=== PATIENT | female | born 1930 | race Caucasian/White ===

== ENCOUNTER 2020-02-25 20:04 | Inpatient (IN) | payer MEDICARE, OTHER ==
[2020-02-25 20:51] LABS: Bilirubin Negative (Negative); Blood, Urine Negative (Negative); Clarity Clear (Clear); Glucose, Urine (Dipstick) Normal (Negative); Ketone, Urine Negative (Negative); Leukocyte Negative Leu/uL (Negative); Nitrite Negative (Negative); Protein, Urine (Dipstick) Negative (Neg-Trace); Specific Gravity, Urine 1.011 (1.002-1.036); Urobilinogen Normal mg/dL (Less than 2)
[2020-02-25 21:16] LABS: #Eosinphils 0.3 thou/uL (0.0-0.7); #Lymphocytes 2.4 thou/uL (1.20-3.40); #Monocytes 0.8 thou/uL (0.11-0.59); #Neutrophils 4.1 thou/uL (1.40-6.50); %Basophils 0.5 % (0.0-1.0); %Eosinophils 4.3 % (0.0-10.0); %Lymphocytes 31.3 % (21.0-51.0); %Monocytes 10.8 % (0.0-10.0); %Neutrophils 53.1 % (42.0-75.0); Hemoglobin 15.1 g/dL (12.0-16.0); Mean Corpuscular HGB CONC 32.5 g/dL (32.0-36.0); Mean Corpuscular Hemoglobin 30.7 pg (27.0-31.0); Mean Corpuscular Volume 94.6 fL (78.0-98.0); Mean Platelet Volume 7.6 fL (7.4-10.4); Platelet Count 229 thou/uL (130-400); RBC Distribution Width 13.2 % (11.5-14.5); Red Blood Cell (RBC) Count 4.92 mill/uL (4.20-5.40); White Blood Cell (WBC) Count 7.7 thou/uL (4.8-10.8)
[2020-02-25 21:28] LABS: ALT (SGPT) 21 U/L (8-55); AST (SGOT) 21 U/L (5-34); Albumin 4.1 g/dL (3.4-4.8); Alkaline Phosphatase 93 U/L (40-110); Anion Gap 16 mmol/L (10-20); BUN (Urea Nitrogen) 20 mg/dL (9.8-20.1); Bilirubin, Total 0.4 mg/dL (0.2-1.2); Calc. Creatinine Clearance 0 mL/min (70-130); Calcium 9.4 mg/dL (7.8-10.44); Carbon Dioxide 22 mmol/L (23-31); Chloride 103 mmol/L (98-107); Estimated GFR-MDRD 61; Globulin 2.9 g/dL (2.4-3.5); Glucose 101 mg/dL (83-110); Sodium 137 mmol/L (136-145)
[2020-02-25] MEDS ORDERED: Aspirin Chewable 81 MG TAB ONE (23:39)
[2020-02-26] MEDS ORDERED: Acetaminophen 650 MG Suppository PR PRN (00:37)
[2020-02-26] MEDS ORDERED: Acetaminophen 325 MG TAB PO PRN (00:37)
[2020-02-26 00:58] VITALS: BMI 31.4
--- NOTE | 2020-02-26 01:01 | PDOC.HHP ---
Hospitalist HPI - History of Present Illness Lightheaded and generally unwell History of Present Illness: Patient states she has been feeling generally unwell today since she woke up and began to feel gradually worse throughout the day. She took her blood pressure at home and noticed that it continues to increase. She self-treated with 2 additional pills of her Lisinopril (15 mg total) and also took her evening dose of Metoprolol as normal. She opted to seek medical attention at a local urgent care center. Recalls feeling lightheaded when she would stand. No pre- syncope/syncope. Denies any spinning sensation or unsteady gait. She states her BP got as high as 207 systolic. She felt lightheaded at that time. Denies experiencing any chest pain. She just walked to the bathroom and states she had no difficulty with her gait. From urgent care facility she was referred to the ED. States she was previously under the care of Dr. Garza for a hx of SVT. Her used to take her to the hospital and after he she discussed with Dr. Garza concern for not having the support to get to the ED. She was therefore referred for ablation which she had done in [place]. She continued to follow-up with Dr. Garza and was eventually cleared. ROS: Patient states she has been well in recent days. Denies any fevers or chills. Has been eating/drinking well. Denies any cough or hemoptysis. No chest pain. States her BP is usually well-controlled. No extremity numbness or weakness. No vision changes or slurred speech. No n/v. She has not noted any changes with her stools or urinary symptoms. Denies any abdominal pain. All other review of systems negative. ED COURSE: 12 lead EKG interpreted by Emergency Department Physician at time of study, Normal sinus rhythm left atrial enlargement slight ST depression in V5 and V6 with T wave inversions in III and aVF overall impression nonspecific. FBC/CMP unremarkable. Trop 0.030. CKMB 2.0. Urinalysis normal. Without intervention, patients BP dropped from 205 systolic to 176 systolic. Shes being admitted for ACS rule out due to EKG findings and indeterminate troponin. She remains chest pain free and denies ever experiencing chest pain. Given 325 mg of aspirin in the ED. PAST MEDICAL HISTORY: 1. History of SVT treated with ablation years ago. 2. History of breast cancer. 3. Macular degeneration. 4. Hypertension. 5. Hypothyroidism. PAST SURGICAL HISTORY: 1. Cardiac ablation for recurrent SVT. 2. Bilateral knee surgery. 3. Bilateral eye surgery. 4. Appendectomy. 5. Hysterectomy. 6. Right breast mastectomy. 7. Oopherectomy. SOCIAL HISTORY: She lives alone. Denies any tobacco use, alcohol consumption or drug use. She walks and functions independently. FAMILY HISTORY: Both of her parents were diagnosed with hypertension. ALLERGIES: 1. Meperidine. 2. Sulfa. CURRENT MEDICATIONS: 1. Levothyroxine 13 mcg PO daily. 2. Metoprolol succinate 50 mg PO daily. 3. Lisinopril/HCTZ 10/12.5 mg PO daily. - Exam General Appearance: NAD, awake alert General - other findings: BP: 158/84, HR: 87, RR: 14, Pain: 0, O2 sat: 96 on RA, Temp: 98.7 Eye: PERRL, anicteric sclera ENT: normocephalic atraumatic, no oropharyngeal lesions Neck: supple, symmetric, no lymphadenopathy Heart: RRR, no murmur, no gallops, normal peripheral pulses Respiratory: CTAB, no wheezes, no rales, no ronchi, normal chest expansion Gastrointestinal: soft, non-tender, non-distended, normal bowel sounds, no guarding, no rigidity Extremities: no edema Skin: normal turgor, no lesions Neurological: cranial nerve grossly intact, normal sensation to touch Musculoskeletal: normal tone, normal strength, no muscle wasting Psychiatric: normal affect, normal behavior, A&O x 3 Hospitalist Results - Labs Result Diagrams: 02/25/20 20:59 02/25/20 20:59 Lab results: WBC 7.7 thou/uL (4.8-10.8) 02/25/20 20:59 Hgb 15.1 g/dL (12.0-16.0) 02/25/20 20:59 Hct 46.6 % (36.0-47.0) 02/25/20 20:59 MCV 94.6 fL (78.0-98.0) 02/25/20 20:59 Plt Count 229 thou/uL (130-400) 02/25/20 20:59 Neutrophils % 53.1 % (42.0-75.0) 02/25/20 20:59 Sodium 137 mmol/L (136-145) 02/25/20 20:59 Potassium 4.0 mmol/L (3.5-5.1) 02/25/20 20:59 Chloride 103 mmol/L (98-107) 02/25/20 20:59 Carbon Dioxide 22 mmol/L (23-31) L 02/25/20 20:59 BUN 20 mg/dL (9.8-20.1) 02/25/20 20:59 Creatinine 0.87 mg/dL (0.6-1.1) 02/25/20 20:59 Glucose 101 mg/dL (83-110) 02/25/20 20:59 Calcium 9.4 mg/dL (7.8-10.44) 02/25/20 20:59 Total Bilirubin 0.4 mg/dL (0.2-1.2) 02/25/20 20:59 AST 21 U/L (5-34) 02/25/20 20:59 ALT 21 U/L (8-55) 02/25/20 20:59 Alkaline Phosphatase 93 U/L (40-110) 02/25/20 20:59 CK-MB (CK-2) 2.0 ng/mL (0-6.6) 02/25/20 21:39 Troponin I 0.030 ng/mL (< 0.028) H 02/25/20 21:39 Serum Total Protein 7.0 g/dL (6.0-8.3) 02/25/20 20:59 Albumin 4.1 g/dL (3.4-4.8) 02/25/20 20:59 Urine Ketones Negative mg/dL (Negative) 02/25/20 20:24 Urine Blood Negative (Negative) 02/25/20 20:24 Urine Nitrite Negative (Negative) 02/25/20 20:24 Ur Leukocyte Esterase Negative Aubrie/uL (Negative) 02/25/20 20:24 Hospitalist H&P A/P - Problem (1) Hypertensive urgency Code(s): I16.0 - HYPERTENSIVE URGENCY Status: Resolved Assessment and Plan: Continue to monitor BP. Has normalized for now. Will use hydralazine as PRN option. Advised patient not to self-medicate in the future with her medications for uncontrolled BP. Will monitor electrolytes. She received 37.5 mg of HCTZ total today. (2) Lightheaded Code(s): R42 - DIZZINESS AND GIDDINESS Status: Resolved Assessment and Plan: Orthostatic BPs. Gentle hydration. (3) Malaise Code(s): R53.81 - OTHER MALAISE Status: Resolved Assessment and Plan: No underlying UTI. No other signs or symptoms of infection. Will obtain baseline CXR. Gentle hydration. (4) Elevated troponin I level Code(s): R79.89 - OTHER SPECIFIED ABNORMAL FINDINGS OF BLOOD CHEMISTRY Status: Acute Assessment and Plan: Indeterminate troponin. Will continue to trend. Cardiology consult placed with Dr. Garza per patient request. Continue statin and aspirin. Continue cardiac monitoring. Check lipid panel with AM labs. (5) Hypertension Code(s): I10 - ESSENTIAL (PRIMARY) HYPERTENSION Status: Chronic Assessment and Plan: Reconcile home meds and monitor BP. (6) Hx of supraventricular tachycardia Code(s): Z86.79 - PERSONAL HISTORY OF OTHER DISEASES OF THE CIRCULATORY SYSTEM Status: Chronic (7) Hypothyroidism Code(s): E03.9 - HYPOTHYROIDISM, UNSPECIFIED Status: Chronic Assessment and Plan: Reconcile home medications once verified. Check TSH with morning labs. - Plan Plan: DVT prophylaxis: Walking program consulted. Patient is ambulatory. RG is her son Mau Franklin. Case discussed with attending who agrees with plan as above.
[2020-02-26] MEDS: Sodium Chloride 0.9% 1,000 ML IV SCH ×2 (01:09→17:06)
[2020-02-26 05:03] LABS: Anion Gap 15 mmol/L (10-20); BUN (Urea Nitrogen) 17 mg/dL (9.8-20.1); Calc. Creatinine Clearance 64 mL/min (70-130); Calcium 8.9 mg/dL (7.8-10.44); Carbon Dioxide 22 mmol/L (23-31); Chloride 106 mmol/L (98-107); Cholesterol 229 mg/dl (< 200 Desired); Estimated GFR-MDRD 69; Glucose 103 mg/dL (83-110); HDL Cholesterol 46 mg/dL (>60 Neg Risk); LDL Cholesterol, Calculated 161 mg/dL; Potassium 3.8 mmol/L (3.5-5.1); Sodium 139 mmol/L (136-145); Triglycerides 108 mg/dL (Less than 150)
[2020-02-26 05:06] LABS: Troponin I 0.028 ng/mL (< 0.028)
[2020-02-26 06:18] LABS: #Basophils 0.1 thou/uL (0.0-0.2); #Eosinphils 0.3 thou/uL (0.0-0.7); #Monocytes 0.8 thou/uL (0.11-0.59); %Basophils 0.8 % (0.0-1.0); %Eosinophils 4.4 % (0.0-10.0); %Lymphocytes 33.2 % (21.0-51.0); %Monocytes 12.5 % (0.0-10.0); %Neutrophils 49.1 % (42.0-75.0); Mean Corpuscular HGB CONC 32.1 g/dL (32.0-36.0); Mean Corpuscular Hemoglobin 30.6 pg (27.0-31.0); Mean Corpuscular Volume 95.6 fL (78.0-98.0); Mean Platelet Volume 7.6 fL (7.4-10.4); Platelet Count 243 thou/uL (130-400); RBC Distribution Width 13.2 % (11.5-14.5); Red Blood Cell (RBC) Count 4.57 mill/uL (4.20-5.40); White Blood Cell (WBC) Count 6.2 thou/uL (4.8-10.8)
[2020-02-26] MEDS ORDERED: cloNIDine 0.1 MG TAB PO PRN (08:23)
--- NOTE | 2020-02-26 08:55 | RAD ---
XR Chest Pa Lat STANDARD HISTORY: Baseline chest radiograph COMPARISON: None FINDINGS: The heart size is normal. The aorta is tortuous. The lungs are well expanded without focal areas of consolidation, pneumothorax or pleural effusions. IMPRESSION: No radiographic evidence of acute cardiopulmonary process.
--- NOTE | 2020-02-26 10:28 | CON ---
DATE OF CONSULTATION: PRIMARY CARE DOCTOR: Dr. Reis. PRIMARY CAFE OR RESTAURANT MANAGER: Dr. Aimee Garza. REFERRING PROVIDER: Ms. Hickey. REASON FOR CARDIOLOGY CONSULT: Hypertensive urgency, indeterminate troponin level. HISTORY OF PRESENT ILLNESS: Ms. Franklin is a very pleasant 89-year-old female with a significant history of SVT with ablation in 2000, hypertension, hyperlipidemia, and glaucoma, and mitral valve regurgitation. The patient was relatively doing well until last Wednesday, she noticed her blood pressure was up to 160s systolic. The patient's primary care doctor adjusted her medication and the patient's blood pressure went down to 130s over 60s to 70s on the next day, Wednesday, and the patient followed up with Dr. Reis's office on Wednesday. The patient had a normal EKG according to the patient. The patient's blood pressure was stable until Wednesday, she noticed her blood pressure was going up to more than 160 on the systolic side, and yesterday, she started having mild dizziness and her blood pressure was more than 180. The patient went to the emergency care place. The patient was transferred to [facility] for blood pressure of 199/101. The patient denied headache, blurry vision, chest pain, heaviness, tightness, or any other cardiac complaints except mild dizziness when the patient's blood pressure is more than 160. She has not followed up with Dr. Garza' office since 2014. She has not seen any oracle sql developer since then. MEDICAL HISTORY: Macular degeneration, SVT with ablation in 2000, hypertension, hyperlipidemia, glaucoma. SURGICAL HISTORY: SVT ablation in 2000, glaucoma pressure relief in both eyes, total hysterectomy, bilateral knee replacement, right breast mastectomy, and appendectomy. FAMILY HISTORY: The patient's father has myocardial infarction. The patient's mother has history of hypertension. SOCIAL HISTORY: She is a . She denied EtOH, tobacco, or illicit drug abuse. 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 Before COVID-19 pandemic, she used to exercise the water exercise and walking on the treadmill without any cardiac complaints. Last exercise was last Wednesday. She had a water exercise and she walked with friends without cardiac complaints or dizziness or lightheadedness. ALLERGIES: SHE IS ALLERGIC TO MEPERIDINE AND SULFA. HOME MEDICATIONS: 1. Niacin 1000 mg every morning. 2. Vitamin D3, 1000 units twice a day. 3. Calcium carbonate 600 mg once a day. 4. Multivitamin once a day. 5. Cranberry extract 500 mg once a day. 6. Zolpidem 5 mg at night as needed. 7. Timolol one drop left eye every morning. 8. Metoprolol succinate 50 mg once a day. 9. Lisinopril 5 mg at night. 10. Levothyroxine 50 mcg once a day. 11. AREDS one capsule twice a day. 12. Latanoprost one drop left eye every night. 13. Aspirin 81 mg at night. REVIEW OF SYSTEMS: A 12-point review of systems negative unless otherwise mentioned in HPI. The patient's last fall was one month ago when she was taking care of her yard, she was tripped on some holes. Otherwise, the patient does not have any balance issues. She uses 2 poles for walking when she does the exercise. LABORATORY DATA: WBC 6.2, hemoglobin 14.0, hematocrit 43.7, platelets 243. Sodium 139, potassium 3.8, BUN 17, creatinine 0.79, glucose 103, calcium 8.9, magnesium 1.9, AST 21, ALT 21. CK-MB is 2.0. Troponin is 0.03, 0.03, and 0.028. BNP is 98. Total cholesterol 229, triglyceride 108, HDL 46, LDL 161. TSH 3.0344. UA is negative. ASSESSMENT AND PLAN: 1. Hypertensive urgency. The patient's orthostatic blood pressure is stable at this moment. We are going to resume her blood pressure medication and will start clonidine 0.1 mg every 8 hours p.r.n. for systolic blood pressure more than 180. We would like to monitor her blood pressure during the hospital course. The patient used to take the metoprolol succinate 50 mg at night; however, we would like to change it to twice a day to more better blood pressure control. Also, lisinopril is 5 mg at night; however, due to the hypertensive urgency, we would like to change that frequency from once a day to twice a day. The patient's creatinine level is under well controlled. The patient's heart rate is stable at this moment. 2. Indeterminate troponin level, seems like that is secondary to demand ischemia secondary to hypertensive urgency. The patient's troponin level went down to normal at the third drawing. The patient does not have any cardiac complaints. She could exercise last Wednesday without any cardiac complaints. Also, due to her age, she is not a candidate for cardiac cath anyway at this moment unless the patient has any symptoms or EKG change. The patient's EKG has not shown any ST-segment changes or T-wave inversion. 3. History of mitral valve regurgitation. The echocardiogram was ordered today. However, if the patient's condition is stable, the patient can have echocardiogram as outpatient at Dr. Garza' office. 4. History of supraventricular tachycardia ablation in 2000. The patient has been on the telemetry, has not shown any arrhythmia or pauses during this hospital course. 5. Hyperlipidemia. The patient's total cholesterol is 229 and LDL 161. She is on niacin, however, low dose of statin might be beneficial for this patient for hyperlipidemia. Thank you very much for Cardiology Service consult request to participate in the care of this patient. We will follow along the patient's care team and make further recommendations as appropriate. Job ID: [id number] MTDD
[2020-02-26] MEDS: Aspirin 81 mg Enteric Coated Tablet PO SCH (10:29)
[2020-02-26] MEDS: Metoprolol Tartrate 25 MG TAB PO SCH ×2 (10:29→23:30)
[2020-02-26] MEDS ORDERED: Zolpidem Tartrate 5 MG TAB PO PRN (11:41)
--- NOTE | 2020-02-26 12:18 | CON ---
DATE OF CONSULTATION: 02/26/2020 INDICATIONS FOR CONSULTATION: An 89-year-old female with a history of hypertension. In the last few days, the blood pressure has been somewhat poorly controlled. She said it was improving quite well, not her normal self. She presented to the hospital and blood pressure was significantly elevated and she was admitted and also was noted to have elevated cardiac enzymes, which were indeterminate, but did not appear to be significant enough to even call it a [id number] elevation myocardial infarction or type 2 myocardial infarction. She is a very pleasant lady, I have taken care of her for many years. She has had some history of SVT in the past. She underwent an ablation and since that time has been doing quite well. She has not been seen in the office for a couple of years and otherwise has been doing very well from a cardiac standpoint until she knows her blood pressure was being elevated over the last several days. She was relatively asymptomatic, but said that she just did not quite feel right in her head that she was feeling a little bit fuzzy, but otherwise she denied any chest pain or shortness of breath and presented to the emergency room after her blood pressure was elevated on several episodes up to close to 200 or 207 systolically and then she has had new blood pressure cuff and she was monitoring her blood pressure, but otherwise she did not have any significant changes otherwise. She was admitted to the hospital and it was noted that the cardiac enzymes were indeterminate, but did slightly increase, but still would be considered negative for myocardial infarction. PAST MEDICAL HISTORY: Significant for the SVT and underwent ablation several years ago. She has a history of macular degeneration. She gets shots once a month. She has history of hypertension, hypothyroidism. She also has a history of breast cancer in the past. SURGICAL HISTORY: She has had the SVT ablation. She has had surgery on her eyes bilaterally. She has had bilateral knee surgery, hysterectomy, appendectomy, mastectomy on the right side. She has had oophorectomy. SOCIAL HISTORY: She is a . She lives alone. She has no history of alcohol or tobacco abuse. 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 ALLERGIES: SHE IS ALLERGIC TO SULFA AND MEPERIDINE. FAMILY HISTORY: Noncontributory at this time, but family history is positive for hypertension. MEDICATIONS: Prior to admission included; 1. Lisinopril/hydrochlorothiazide 10/12.5 daily. 2. Metoprolol 50 mg a day. 3. Levothyroxine 13 mcg daily. PHYSICAL EXAMINATION: GENERAL: Reveals a well-developed, well-nourished female, who is in no acute distress at this time. She is very pleasant. She is alert and oriented. VITAL SIGNS: Blood pressure is 172/72, heart rate is in the 70s and shows a sinus rhythm. She is afebrile. Respiratory rate is 16, O2 saturations 93%. HEENT: Shows head to be normocephalic and atraumatic. Carotid pulses are present. There were no bruits. CHEST: Clear to auscultation without rales, rhonchi, or wheezing. CARDIOVASCULAR: Reveals a regular rate and rhythm with normal S1 and S2, but I cannot hear an S3 nor an S4. There were no significant murmurs, heaves, thrills, bruits, or rubs noted. ABDOMEN: Soft and nontender. Positive bowel sounds are present. EXTREMITIES: Showed no clubbing, cyanosis, or edema. Pedal pulses are present. NEUROLOGIC: She appears to be fully intact. She has normal strength, normal tone. SKIN: Warm and dry. There were no other significant abnormalities noted. DIAGNOSTIC STUDIES: Her EKG shows a sinus rhythm without any acute changes. No indication of previous myocardial infarction. No evidence of ischemia. LABORATORY DATA: Shows a hemoglobin of 14, platelet count was 243,000, WBC of 6.2. Sodium was 139, potassium was 3.8, BUN was 17, creatinine 0.79, blood sugar was 103. Troponin I is negative. Cholesterol was 229 with LDL 161 which is significantly elevated, HDL was 46. Please note that she was not taking any medications at home for cholesterol and this will need to be addressed, whether or not this is a fasting lipid profile, I am uncertain. IMPRESSION: 1. Hypertension. She will need to resume her home medications. Since being admitted to the hospital, she has not been given her medications. I requested this morning that be addressed by the primary care service and they reinstate her medications. We may need to add another medication such as amlodipine or some other medication to lower the blood pressure. I did not hear any abdominal bruits that would indicate renal artery stenosis. 2. Hyperlipidemia. We will see if she will tolerate statins. I do not see that she is allergic to these medications and then can repeat the cholesterol level in 3 months. This is going to be followed by the primary care physician, Dr. Danis Reis. She was taking niacin for her cholesterol. 3. Hypothyroidism. She will be continued on her present medications. 4. She also has macular degeneration. She gets a weekly injection. She also takes ophthalmic drops. This will be continued for the time being. The main concern is to continue to monitor the blood pressure. We will also check an echocardiogram. We will be more than happy to continue to follow the patient with you. Further recommendations will depend on whether or not the blood pressure becomes under better control and also the results of the echocardiogram. She denies any chest pain or shortness of breath. Job ID: [id number]
[2020-02-26] MEDS ORDERED: Levothyroxine Sodium 50 MCG TAB PO SCH (12:45)
[2020-02-26] MEDS: Lisinopril 5 MG TAB PO SCH ×2 (12:45→23:30)
[2020-02-26] MEDS ORDERED: Timolol 0.5% Ophth Soln 5 ml Bottle L EYE SCH (12:45)
[2020-02-26 13:29] LABS: SARS-CoV-2 MS2 Positive; SARS-CoV-2 N Gene Negative; SARS-CoV-2 S Gene Negative; SARS-CoV-2 by NAA Not Detected (NotDetected); SARS-CoV-2 orf1ab Negative
--- NOTE | 2020-02-26 13:40 | PDOC.HOSPP ---
- Subjective Encounter Date: 02/26/20 Encounter Time: 12:00 Subjective: Patient seen and examined. No new complaints. Reports feeling much better. Denies any chest pain, SOB or light headedness. No overnight events - Objective Vital Signs & Weight: Vital Signs (12 hours) Temp Pulse Resp BP BP BP BP 02/26/20 12:45 70 02/26/20 12:25 98.5 F 70 18 116/57 L 100/58 L 137/60 02/26/20 10:52 02/26/20 08:16 97.9 F 71 16 172/72 H 149/71 H 178/77 H 02/26/20 04:20 98.1 F 79 18 172/77 H Pulse Ox 02/26/20 12:45 02/26/20 12:25 96 02/26/20 10:52 93 L 02/26/20 08:16 93 L 02/26/20 04:20 96 Weight Weight 182 lb 12.8 oz I&O: 02/25/20 02/26/20 02/27/20 06:59 06:59 06:59 Output Total 475 Balance -475 Result Diagrams: 02/26/20 05:45 02/26/20 04:30 EKG Reviewed by me: Yes Hospitalist ROS - Review of Systems Constitutional: denies: fever, chills Cardiovascular: denies: chest pain, palpitations, edema, light headedness Gastrointestinal: denies: nausea, vomiting, abdominal pain Neurological: reports: weakness. denies: numbness, incoordination, change in speech All other systems reviewed; all pertinent +/- noted in HPI/Subj - Medication Medications: Active Medications Generic Name Dose Route Start Last Admin Trade Name Freq PRN Reason Stop Dose Admin Aspirin 81 mg 02/26/20 09:00 02/26/20 10:29 Aspirin 81 Mg Enteric Coated Tablet PO 81 mg DAILY BRISSA Administration Sodium Chloride 1,000 mls @ 50 mls/hr 02/26/20 00:45 02/26/20 01:09 Normal Saline 0.9% IV 1,000 mls .Q20H BRISSA Administration Lisinopril 5 mg 02/26/20 09:00 02/26/20 12:45 Lisinopril 5 Mg Tab PO 5 mg BID BRISSA Administration Metoprolol Tartrate 25 mg 02/26/20 09:00 02/26/20 10:29 Metoprolol Tartrate 25 Mg Tab PO 25 mg BID BRISSA Administration - Exam General Appearance: NAD, awake alert Eye: anicteric sclera ENT: normocephalic atraumatic Neck: supple, symmetric, no JVD Heart: RRR, no murmur, no gallops, no rubs, normal peripheral pulses Respiratory: CTAB, no wheezes, no rales, no ronchi, normal chest expansion, no tachypnea Gastrointestinal: soft, non-tender, normal bowel sounds, no bruit, no guarding, no rigidity Extremities: no cyanosis, no edema Skin: no rashes Neurological: normal sensation to touch, no weakness, no focal deficits Musculoskeletal: normal tone, normal strength Psychiatric: normal affect, A&O x 3 Hosp A/P (1) Lightheaded Code(s): R42 - DIZZINESS AND GIDDINESS Status: Resolved (2) Hypertensive urgency Code(s): I16.0 - HYPERTENSIVE URGENCY Status: Resolved (3) Elevated troponin I level Code(s): R79.89 - OTHER SPECIFIED ABNORMAL FINDINGS OF BLOOD CHEMISTRY Status: Acute (4) Hypertension Code(s): I10 - ESSENTIAL (PRIMARY) HYPERTENSION Status: Chronic (5) Hypothyroidism Code(s): E03.9 - HYPOTHYROIDISM, UNSPECIFIED Status: Chronic (6) Hx of supraventricular tachycardia Code(s): Z86.79 - PERSONAL HISTORY OF OTHER DISEASES OF THE CIRCULATORY SYSTEM Status: Chronic (7) Glaucoma Code(s): H40.9 - UNSPECIFIED GLAUCOMA Status: Chronic - Plan DVT proph w/SCDs 89/F with PMH of hypertension and hypothyroidism presents for feeling ligh theaded. Reported checking her blood pressure frequently at home. Average SBP 150-130. Reports decreased water intake. Reports symptoms appear with standing. #Lightheaded Currently resolved. Orthostatic positive. Continue IV fluids. Awaiting echocardiogram results. #Hypertensive urgency Appreciate cardiology recs. Metoprolol 25 mg p.o. twice daily Lisinopril 5 mg p.o. twice daily #Elevated troponin level Likely demand ischemia 0.030, 0.030, 0.028, flat EKG normal sinus rhythm no ST elevations. Continue aspirin #Hypothyroidism TSH 3.03, unremarkable Continue home dose of levothyroxine. #History of supraventricular tachycardia Followed by Dr. Garza. EKG normal sinus rhythm. Continue beta-lona #Glaucoma Restart patient's home medications.
[2020-02-26] MEDS: Cholecalciferol 1,000 UNITS (25 MCG) TAB PO SCH (20:47)
[2020-02-26] MEDS ORDERED: Latanoprost 0.005% Ophth Soln 2.5 ml Bottle L EYE SCH (21:00)
[2020-02-27] MEDS ORDERED: Levothyroxine Sodium 50 MCG TAB PO SCH (06:00)
[2020-02-27] MEDS: Lisinopril 5 MG TAB PO SCH (08:58)
[2020-02-27] MEDS: Aspirin 81 mg Enteric Coated Tablet PO SCH (08:59)
[2020-02-27] MEDS: Cholecalciferol 1,000 UNITS (25 MCG) TAB PO SCH (08:59)
[2020-02-27] MEDS: Metoprolol Tartrate 25 MG TAB PO SCH (08:59)
[2020-02-27] MEDS ORDERED: Timolol 0.5% Ophth Soln 5 ml Bottle L EYE SCH (09:00)
[2020-02-27] MEDS ORDERED: Multivitamin W/ Minerals 1 TAB PO SCH (09:00)
[2020-02-27] MEDS ORDERED: Calcium Carbonate 600 MG TAB PO SCH (09:00)
--- NOTE | 2020-02-27 09:50 | PDOC.HOSPP ---
- Subjective Encounter Date: 02/27/20 Encounter Time: 09:48 Subjective: Patient seen and examined. No new complaints. No overnight events. Reports feeling much better. Expresses desire for written plan when her blood pressure gets "too high". Denies any chest pain, SOB, light headedness. Has no other complaints. - Objective Vital Signs & Weight: Vital Signs (12 hours) Temp Pulse Resp BP BP BP Pulse Ox 02/27/20 08:28 87 118/59 L 119/57 L 134/63 02/27/20 08:27 98.2 F 72 16 94 L 02/27/20 04:57 98.2 F 77 14 116/61 95 02/27/20 00:10 98.0 F 71 14 134/63 95 02/26/20 23:30 77 02/26/20 22:33 77 14 119/60 Weight Weight 182 lb 12.8 oz I&O: 02/26/20 02/27/20 02/28/20 06:59 06:59 06:59 Intake Total 2140 Output Total 475 1350 Balance -475 790 Result Diagrams: 02/26/20 05:45 02/26/20 04:30 Hospitalist ROS - Review of Systems Constitutional: denies: fever, chills Respiratory: denies: cough, shortness of breath, hemoptysis Cardiovascular: denies: chest pain, palpitations, edema, light headedness Gastrointestinal: denies: nausea, vomiting, abdominal pain, diarrhea All other systems reviewed; all pertinent +/- noted in HPI/Subj - Medication Medications: Active Medications Generic Name Dose Route Start Last Admin Trade Name Sunilq PRN Reason Stop Dose Admin Aspirin 81 mg 02/26/20 09:00 02/27/20 08:59 Aspirin 81 Mg Enteric Coated Tablet PO 81 mg DAILY BRISSA Administration Calcium Carbonate 600 mg 02/27/20 09:00 02/27/20 08:59 Calcium Carbonate 600 Mg Tab PO 600 mg DAILY BRISSA Administration Cholecalciferol 1,000 units 02/26/20 21:00 02/27/20 08:59 Cholecalciferol 1,000 Units (25 Mcg) Tab PO 1,000 units BID BRISSA Administration Sodium Chloride 1,000 mls @ 50 mls/hr 02/26/20 00:45 02/26/20 17:06 Normal Saline 0.9% IV 1,000 mls .Q20H BRISSA Administration Iron/Minerals/Multivitamins 1 tab 02/27/20 09:00 02/27/20 08:58 Multivitamin W/ Minerals 1 Tab PO 1 tab DAILY BRISSA Administration Latanoprost 1 drop 02/26/20 21:00 02/26/20 20:47 Latanoprost 0.005% Ophth Soln 2.5 Ml Bottle L EYE 1 drp HS BRISSA Administration Levothyroxine Sodium 50 mcg 02/27/20 06:00 02/27/20 06:03 Levothyroxine Sodium 50 Mcg Tab PO 50 mcg 0600 BRISSA Administration Lisinopril 5 mg 02/26/20 09:00 02/27/20 08:58 Lisinopril 5 Mg Tab PO 5 mg BID BRISSA Administration Metoprolol Tartrate 25 mg 02/26/20 09:00 02/27/20 08:59 Metoprolol Tartrate 25 Mg Tab PO 25 mg BID BRISSA Administration Niacin 1,000 mg 02/27/20 09:00 02/27/20 08:59 Niacin Er 500 Mg Tab PO 1,000 mg QAM BRISSA Administration Timolol Maleate 1 drop 02/27/20 09:00 02/27/20 09:02 Timolol 0.5% Ophth Soln 5 Ml Bottle L EYE 1 drop QAM BRISSA Administration - Exam General Appearance: NAD, awake alert Eye: anicteric sclera Neck: supple, symmetric, no JVD Heart: RRR, no murmur, no gallops, no rubs, normal peripheral pulses Respiratory: CTAB, no wheezes, no rales, no ronchi, normal chest expansion, no tachypnea Extremities: no cyanosis, no edema Skin: no rashes Neurological: no focal deficits Psychiatric: normal affect, A&O x 3 Hosp A/P (1) Hypertensive urgency Code(s): I16.0 - HYPERTENSIVE URGENCY Status: Resolved (2) Elevated troponin I level Code(s): R79.89 - OTHER SPECIFIED ABNORMAL FINDINGS OF BLOOD CHEMISTRY Status: Acute (3) Lightheaded Code(s): R42 - DIZZINESS AND GIDDINESS Status: Resolved (4) Hypertension Code(s): I10 - ESSENTIAL (PRIMARY) HYPERTENSION Status: Chronic (5) Hypothyroidism Code(s): E03.9 - HYPOTHYROIDISM, UNSPECIFIED Status: Chronic (6) Hx of supraventricular tachycardia Code(s): Z86.79 - PERSONAL HISTORY OF OTHER DISEASES OF THE CIRCULATORY SYSTEM Status: Chronic (7) Glaucoma Code(s): H40.9 - UNSPECIFIED GLAUCOMA Status: Chronic (8) HLD (hyperlipidemia) Code(s): E78.5 - HYPERLIPIDEMIA, UNSPECIFIED Status: Chronic - Plan 89/F with PMH of hypertension and hypothyroidism presents for feeling lightheaded. Reported checking her blood pressure frequently at home. Average SBP 150-130. Reports decreased water intake. Reports symptoms appear with standing. #Hypertensive urgency BP well controlled. Getting Metoprolol 25 mg p.o. twice daily Getting Lisinopril 5 mg p.o. twice daily Echo taken, awaiting reading. Patient requests written plan for treating elevated BP readings at home. #NSTEMI, type II Troponins flat EKG no signs ST elevations #Orthostatic Hypotension Discussed pathophysiology Instructed to stand slowly. Encourage oral water intake. #Lightheaded Resolved. Orthostatic VS positive this morning. Encourage oral fluid intake. #HLD Takes Niaspan at home. Failed trail on statins in past, "makes my bones hurt". #Elevated troponin level 0.030, 0.030, 0.028, flat EKG NSR Continue aspirin. #Hypothyroidism Continue levothyroxine. #History of supraventricular tachycardia Continue home dose of metoprolol. #Glaucoma chronic, stable. Continue home medication regimen.
--- NOTE | 2020-02-27 11:50 | PDOC.CPN ---
- Subjective Date: 02/27/20 Time: 11:52 Interval history: The pt seen and examined. No overnight events. No cardiac complaints. - Objective Allergies/Adverse Reactions: Allergies Allergy/AdvReac Type Severity Reaction Status Date / Time meperidine HCl [From Demerol] Allergy Emesis Verified 02/26/20 01:22 Sulfa (Sulfonamide Allergy Rash Verified 02/26/20 01:22 Antibiotics) Visit Medications: Current Medications Acetaminophen (Acetaminophen 325 Mg Tab) 650 mg PO Q4H PRN PRN Reason: Headache/Fever/Mild Pain (1-3) Acetaminophen (Acetaminophen 650 Mg Suppository) 650 mg TN Q4H PRN PRN Reason: Headache/Fever/Mild Pain (1-3) Aspirin (Aspirin 81 Mg Enteric Coated Tablet) 81 mg PO DAILY [facility] Last Admin: 02/27/20 08:59 Dose: 81 mg Documented by: Calcium Carbonate (Calcium Carbonate 600 Mg Tab) 600 mg PO DAILY [facility] Last Admin: 02/27/20 08:59 Dose: 600 mg Documented by: Cholecalciferol (Cholecalciferol 1,000 Units (25 Mcg) Tab) 1,000 units PO BID [facility] Last Admin: 02/27/20 08:59 Dose: 1,000 units Documented by: Clonidine (Clonidine 0.1 Mg Tab) 0.1 mg PO Q8H PRN PRN Reason: Hypertension SBP>180 Sodium Chloride (Normal Saline 0.9%) 1,000 mls @ 50 mls/hr IV .Q20H [facility] Last Admin: 02/26/20 17:06 Dose: 1,000 mls Documented by: Iron/Minerals/Multivitamins (Multivitamin W/ Minerals 1 Tab) 1 tab PO DAILY [facility] Last Admin: 02/27/20 08:58 Dose: 1 tab Documented by: Latanoprost (Latanoprost 0.005% Ophth Soln 2.5 Ml Bottle) 1 drop L EYE HS [facility] Last Admin: 02/26/20 20:47 Dose: 1 drp Documented by: Levothyroxine Sodium (Levothyroxine Sodium 50 Mcg Tab) 50 mcg PO 0600 [facility] Last Admin: 02/27/20 06:03 Dose: 50 mcg Documented by: Lisinopril (Lisinopril 5 Mg Tab) 5 mg PO DAILY [facility] Metoprolol Tartrate (Metoprolol Tartrate 25 Mg Tab) 25 mg PO BID [facility] Last Admin: 02/27/20 08:59 Dose: 25 mg Documented by: Niacin (Niacin Er 500 Mg Tab) 1,000 mg PO [facility] Last Admin: 02/27/20 08:59 Dose: 1,000 mg Documented by: Sodium Chloride (Flush - Normal Saline 10 Ml Syringe) 10 ml IVF Q12HR PRN PRN Reason: Saline Flush Sodium Chloride (Flush - Normal Saline 10 Ml Syringe) 10 ml IVF PRN PRN PRN Reason: Saline Flush Timolol Maleate (Timolol 0.5% Ophth Soln 5 Ml Bottle) 1 drop L EYE [facility] Last Admin: 02/27/20 09:02 Dose: 1 drop Documented by: Zolpidem Tartrate (Zolpidem Tartrate 5 Mg Tab) 5 mg PO HS PRN PRN Reason: Insomnia Vital Signs & Weight: Vital Signs Temp Pulse Resp BP BP BP Pulse Ox 02/27/20 08:28 87 118/59 L 119/57 L 134/63 02/27/20 08:27 98.2 F 72 16 94 L 02/27/20 04:57 98.2 F 77 14 116/61 95 02/27/20 00:10 98.0 F 71 14 134/63 95 Weight 182 lb 12.8 oz - Physical Exam General: alert & oriented x3 HEENT: mucus membranes moist Neck: supple neck Cardiac: regular rate and rhythm, S1/S2 Lungs: clear to auscultation Extremities: no edema - Labs Result Diagrams: 02/26/20 05:45 02/26/20 04:30 Troponin/CKMB CK-MB (CK-2) 2.0 ng/mL (0-6.6) 02/25/20 21:39 Troponin I 0.028 ng/mL (< 0.028) 02/26/20 04:30 - Telemetry Sinus rhythms and dysrhythmias: sinus rhythm - Assessment/Plan Assessment/Plan: 1. HTN urgency - well controlled with current med; the pt will go home with PRN Clonidine 0.1mg PRN for SBP > 180. 2. Elevated troponin I level - most likely due to demand ischemia 2/2 HTN urgency; 3. Hx of SVT - remains in SR 4. MR - Echo result is pending 5. HLD - on Statin 6. Hypothyroidism 7. Glaucoma MAR reviewed * From Cardiac standpoint, the pt can be d/anderson home once her Echo result shows stable. * The pt will f/u with Dr Garaz' office in 2-4 wks. She must check and record her VS BID at home and bring the record to Dr Garza' office.
[2020-02-27 11:58] VITALS: BP 142/71; TEMP 97.7
--- NOTE | 2020-02-27 15:06 | DIS ---
DATE OF ADMISSION: 02/25/2020 DATE OF DISCHARGE: 02/27/2020 PRIMARY CARE PHYSICIAN: Dr. Reis. DISCHARGE DIAGNOSES: 1. Hypertensive urgency. 2. [id number] myocardial infarction, type 2. 3. Hypertension. 4. Hyperlipidemia. 5. Hypothyroidism. 6. COVID test negative. CONDITION: I examined the patient on the day of discharge. Vital signs are stable. The patient denies any chest pain, heart palpitations, or shortness of breath. S1 and S2 auscultated. Lungs were clear to auscultation. CONSULT: Cardiology, Dr. Preet Garza. HOSPITAL COURSE: The patient is an 89-year-old female with a past medical history significant for hypertension, hyperlipidemia, and hypothyroidism, who presented to the emergency department for an elevated blood pressure reading at home. The patient reported a systolic blood pressure reading of 207. Subsequently, the patient took an extra dose of her lisinopril along with her night dose of beta lona early. Upon standing, she felt lightheaded. For these reasons, she came to the emergency department. In the ER, EKG, sinus rhythm, no ST elevations, chest x-ray negative for any acute process. Troponin 0.030, CK-MB 2.0. The patient was given aspirin and admitted up to the floor for hypertensive urgency and rule out ACS. On the floor, Cardiology was consulted. Her home blood pressure medications were adjusted. Her metoprolol, which is usually 50 mg at night, was changed to metoprolol 25 mg b.i.d. Her lisinopril 5 mg at home was changed to 5 mg in the a.m. Orthostatics were performed. The patient was positive for orthostatics. Throughout her stay, she had a good blood pressure control. Echocardiogram was performed, which showed ejection fraction 60% to 65% with some diastolic dysfunction. Mild mitral, aortic, tricuspid, pulmonic regurgitation present. Essentially normal echocardiogram. During the patient's stay, [facility] recommended that the patient's status be changed to inpatient. DISCHARGE MEDICATIONS: 1. Calcium carbonate 600 mg p.o. daily. 2. Cholecalciferol, vitamin D3 of 1000 units p.o. b.i.d. 3. Latanoprost 2.5 mL bottle 0.05% ophthalmic solution one drop left eye q.h.s. 4. Levothyroxine 50 mcg p.o. q.a.m. 5. [employer] multivitamin tablet one tablet p.o. daily. 6. Niacin 1000 mg p.o. q.a.m. 7. Timolol maleate 0.5% ophthalmic solution, 5 mL bottle one drop left eye q.a.m. 8. Ambien 5 mg p.o. q.h.s. p.r.n. insomnia. 9. 1 cap p.o. b.i.d. 10. Aspirin 81 mg p.o. q.p.m. 11. Cranberry fruit extract 500 mg p.o. daily. FOLLOWUP: 1. Follow up with Dr. Reis in [address] Preet Garza in 2 to 3 weeks. DIET: Heart healthy. ACTIVITY: As tolerated. DISCHARGE DISPOSITION: Home. Time spent on discharge was approximately 20 minutes. Job ID: [id number] MTDD
--- NOTE | 2020-02-27 15:51 | PDOC.EVN ---
Event Note - Event Note Event Note: Chart reviewed. I saw and examined the patient. I discussed the case with ALONZO. Agree with assessment and plan as documented. Pt to be discharged home with medication changes as per cardiology service.
[2020-02-28] MEDS ORDERED: Lisinopril 5 MG TAB PO SCH (09:00)
== END 2020-02-27 14:26 | disposition home or self-care (01) | DRG 282 ==
LOC: ERS 20:04 → 2SW 23:45 → OBSVTOIN 02-27 10:54
PROVIDERS: ADMIT Internal Medicine; ATTEND Internal Medicine
DX: I16.0 Hypertensive urgency (principal); I21.A1 Myocardial infarction type 2; I10 Essential (primary) hypertension; E78.5 Hyperlipidemia, unspecified; E03.9 Hypothyroidism, unspecified; Z20.828 Contact with and (suspected) exposure to other viral communicable diseases; I08.1 Rheumatic disorders of both mitral and tricuspid valves; I37.1 Nonrheumatic pulmonary valve insufficiency; H35.30 Unspecified macular degeneration; I95.1 Orthostatic hypotension; H40.9 Unspecified glaucoma; Z85.3 Personal history of malignant neoplasm of breast; Z90.710 Acquired absence of both cervix and uterus; Z90.49 Acquired absence of other specified parts of digestive tract; Z88.2 Allergy status to sulfonamides; Z88.8 Allergy status to other drugs, medicaments and biological substances; Z79.890 Hormone replacement therapy; Z79.899 Other long term (current) drug therapy
CPT/HCPCS: 36415; 71046; 80048; 80053; 80061; 81003; 82553; 83735; 83880; 84443; 84484; 85025; 87635; 93005; 93306; 94760; 96360; 96361; G0378; U0003

== ENCOUNTER 2020-03-15 23:09 | Emergency (ER) | payer MEDICARE | END 2020-03-15 23:43 | disposition home or self-care (01) | LOC: ERS 23:09 | DX: I10 Essential (primary) hypertension (principal); Z79.899 Other long term (current) drug therapy | CPT/HCPCS: 99283 ==